=== PATIENT | male | born 1990 | race African-American/Black ===

== ENCOUNTER 2017-04-27 20:08 | Emergency (ER) | payer OTHER ==
[~2017-04-27] VITALS: Ht 175.3 cm; Wt 63.5 kg
[2017-04-27 20:29] VITALS: BP 125/83
== END 2017-04-27 23:56 | disposition left against medical advice (07) ==
LOC: ER 20:08
DX: R50.9 Fever, unspecified (principal); M79.1 Myalgia; Z53.21 Procedure and treatment not carried out due to patient leaving prior to being seen by health care provider

== ENCOUNTER 2017-12-12 21:51 | Observation (INO) | payer OTHER ==
[~2017-12-12] VITALS: Ht 170.2 cm; Wt 62.1 kg
[2017-12-13 00:10] LABS: Basophils # (auto) 0 uL; Basophils % (auto) 0.5 % (0.0-2.0); Eosinophils # (auto) 0.1 uL; Eosinophils % (auto) 1.9 % (0.0-7.0); Hematocrit 44.1 % (41.0-53.0); Hemoglobin 15.3 g/dL (13.5-17.5); Lymphocytes # (auto) 1.5 uL; Lymphocytes % (auto) 33.8 % (10.0-50.0); Mean Corpuscular Hemoglobin 30.7 pg (28.0-32.0); Mean Corpuscular Hgb Conc. 34.7 g/dL (32.0-36.0); Mean Corpuscular Volume 88.5 fL (80.0-100.0); Monocytes # (auto) 0.5 uL; Monocytes % (auto) 12.1 % (0.0-12.0); Neutrophils # (auto) 2.3 uL; Neutrophils % (auto) 51.7 % (37.0-80.0); Nucleated Red Blood Cells % 0.3 %; Platelet Count (auto) 253 10^3/uL (140-450); Red Blood Cells 4.99 10^6/uL (4.5-5.90); Red Cell Distribution Width 13.3 % (11.8-14.3); White Blood Cell 4.5 10^3/uL (4.4-10.8)
[2017-12-13 00:29] LABS: BUN/Creatinine Ratio 5.7; Calcium 9.1 mg/dL (8.5-10.1); Potassium 3.7 mmol/L (3.5-5.1)
[2017-12-13 00:32] LABS: Bilirubin, Total 0.5 mg/dL (0.2-1.0)
[2017-12-13 02:27] LABS: Amylase 64 U/L (25-115); Lipase 228 U/L (73-393)
[2017-12-13 03:42] VITALS: BP 132/63
[2017-12-13] MEDS ORDERED: ALUM & MAG HYDROX-SIMETH LIQ(MAALOX) 30 ML PO ONE (05:15)
[2017-12-13] MEDS ORDERED: LIDOCAINE VISCOUS 2% 15ML UD MT ONE (05:15)
[2017-12-13] MEDS ORDERED: DONNATAL 5ml ORAL Elix (BELLADONNA ALK-PHENOBARB) PO ONE (05:15)
== END 2017-12-13 05:28 | disposition home or self-care (01) | DRG 241 ==
LOC: ER 21:51 → OVERFLOW 21:52 → ER 12-13 05:28
PROVIDERS: ADMIT Emergency Medicine; ATTEND Emergency Medicine
DX: K29.00 Acute gastritis without bleeding (principal); M41.9 Scoliosis, unspecified; J45.909 Unspecified asthma, uncomplicated
CPT/HCPCS: 36415; 74176; 80053; 82150; 83690; 85025; 99285; G0378

== ENCOUNTER 2018-06-13 19:52 | Emergency (ER) | payer SELFPAY ==
[~2018-06-13] VITALS: Ht 172.7 cm; Wt 61.2 kg
[2018-06-13 20:45] LABS: Basophils # (auto) 0 uL; Basophils % (auto) 0.4 % (0.0-2.0); Eosinophils # (auto) 0 uL; Eosinophils % (auto) 0.2 % (0.0-7.0); Hematocrit 46.8 % (41.0-53.0); Hemoglobin 16.4 g/dL (13.5-17.5); Lymphocytes # (auto) 0.7 uL; Lymphocytes % (auto) 15.7 % (10.0-50.0); Mean Corpuscular Hemoglobin 31.3 pg (28.0-32.0); Mean Corpuscular Volume 89.4 fL (80.0-100.0); Monocytes # (auto) 0.3 uL; Monocytes % (auto) 7.1 % (0.0-12.0); Neutrophils # (auto) 3.5 uL; Neutrophils % (auto) 76.6 % (37.0-80.0); Nucleated Red Blood Cells % 0.2 %; Platelet Count (auto) 202 10^3/uL (140-450); Red Blood Cells 5.23 10^6/uL (4.5-5.90); White Blood Cell 4.6 10^3/uL (4.4-10.8)
[2018-06-13 21:14] LABS: Calcium 8.8 mg/dL (8.5-10.1); Potassium 3.9 mmol/L (3.5-5.1)
[2018-06-13 21:16] LABS: Bilirubin, Total 0.7 mg/dL (0.2-1.0); Total Protein 7.8 g/dL (6.4-8.2)
[2018-06-14] MEDS ORDERED: metroNIDAZOLE 500 MG TAB PO ONE (02:30)
[2018-06-14] MEDS ORDERED: MORPHINE SULFATE 4 MG/ML SYR/VIAL IV ONE (02:30)
[2018-06-14] MEDS ORDERED: ONDANSETRON HCL 4 MG/2 ML VIAL IV ONE (02:30)
[2018-06-14] MEDS ORDERED: SODIUM CHLORIDE 0.9% 1,000 ML IV ONE (02:30)
[2018-06-14] MEDS ORDERED: cefTRIAXone 1GM/50ML D5W 50 ML IV ONE (02:30)
[2018-06-14 03:38] VITALS: BP 116/80
== END 2018-06-14 04:04 | disposition home or self-care (01) ==
LOC: ER 19:52
DX: K52.9 Noninfective gastroenteritis and colitis, unspecified (principal); F12.10 Cannabis abuse, uncomplicated; J45.909 Unspecified asthma, uncomplicated
CPT/HCPCS: 36415; 74176; 80053; 82150; 83690; 85025; 96365; 96375; 99284; J0696; J2270; J2405; J7030

== ENCOUNTER 2021-04-28 18:53 | Inpatient (IN) | payer MEDICAID, OTHER ==
[~2021-04-28] VITALS: Ht 172.7 cm; Wt 67.7 kg
[2021-04-28 19:33] LABS: Basophils # (auto) 0 10 ^3/uL (0-0.2); Basophils % (auto) 1.3 % (0.0-2.0); Eosinophils # (auto) 0 10 ^3/uL (0-0.8); Eosinophils % (auto) 0.2 % (0.0-7.0); Hematocrit 49.8 % (41.0-53.0); Hemoglobin 16.8 g/dL (13.5-17.5); Lymphocytes # (auto) 0.8 10 ^3/uL (0.4-5.4); Lymphocytes % (auto) 21.7 % (10.0-50.0); Mean Corpuscular Hgb Conc. 33.8 g/dL (32.0-36.0); Mean Corpuscular Volume 100.6 fL (80.0-100.0); Monocytes # (auto) 0.3 10 ^3/uL (0-1.3); Monocytes % (auto) 7.7 % (0.0-12.0); Neutrophils # (auto) 2.6 10 ^3/uL (1.6-8.6); Neutrophils % (auto) 69.1 % (37.0-80.0); Nucleated Red Blood Cells % 0.1 %; Red Blood Cells 4.94 10^6/uL (4.5-5.90); Red Cell Distribution Width 14.3 % (11.8-14.3); White Blood Cell 3.7 10^3/uL (4.4-10.8)
[2021-04-28 19:49] LABS: INR 1.05 (0.9-1.15)
[2021-04-28 19:50] LABS: Alanine Aminotransferase 173 U/L (16-61); Anion Gap 21 (5-15); Aspartate Aminotransferase 260 U/L (15-37); BUN/Creatinine Ratio 7.9; Blood Urea Nitrogen 6 mg/dL (7-18); Calcium 8.7 mg/dL (8.5-10.1); Carbon Dioxide 17 mmol/L (21-32); Chloride 96 mmol/L (98-107); GFR African American 156 mL/min; GFR Non-African American 129 mL/min; Glucose 97 mg/dL (74-106); Magnesium 1.7 mg/dL (1.6-2.6); Potassium 4.2 mmol/L (3.5-5.1); Sodium 134 mmol/L (136-145)
[2021-04-28 19:52] LABS: Alkaline Phosphatase 171 U/L (45-117); Bilirubin, Total 1.3 mg/dL (0.2-1.0); Total Protein 8.1 g/dL (6.4-8.2)
[2021-04-28 19:58] LABS: Lipase > 1500 U/L (73-393)
[2021-04-28] MEDS ORDERED: ONDANSETRON HCL 4 MG/2 ML VIAL IV ONE (20:15)
[2021-04-28] MEDS ORDERED: HYDROmorphone HCL 2 MG/ML VL IV ONE (20:15)
[2021-04-28] MEDS ORDERED: SODIUM CHLORIDE 0.9% 1,000 ML IV ONE (20:15)
[2021-04-28] MEDS ORDERED: IOHEXOL 300 MG/ML 100ML BOTTLE IJ ONE (20:48)
[2021-04-28 22:05] LABS: INR 1.02 (0.9-1.15)
[2021-04-29] MEDS ORDERED: HYDROcodone-ACET 5/325MG TAB PO PRN ×2 (00:45→11:15)
[2021-04-29 02:35] VITALS: BP 149/117
[2021-04-29] MEDS: SODIUM CHLORIDE 0.9% 1,000 ML IV SCH ×4 (02:35→18:44)
[2021-04-29] MEDS: ONDANSETRON HCL 4 MG/2 ML VIAL IV PRN ×4 (02:54→17:45)
[2021-04-29] MEDS: MORPHINE SULFATE INJECTION 2 MG/ML SYRG IV PRN ×2 (03:08→08:29)
[2021-04-29 05:00] VITALS: BP 159/105
[2021-04-29] MEDS ORDERED: ALBU2TAB4 PO (05:05)
[2021-04-29 06:04] LABS: Urine Bacteria NONE SEEN /hpf (None Seen); Urine Blood Negative /uL (Negative); Urine WBC <1 /hpf (0 - 3)
[2021-04-29 06:50] LABS: Urine Specific Gravity > 1.050 (1.001-1.035)
[2021-04-29] MEDS: DOCUSATE SOD 100 MG CAP PO SCH ×2 (08:29→21:49)
[2021-04-29 11:18] VITALS: BP 146/115
[2021-04-29] MEDS: HYDROmorphone HCL 2 MG/ML VL IV PRN ×4 (11:23→21:50)
[2021-04-29 12:47] LABS: Calcium 8.1 mg/dL (8.5-10.1)
[2021-04-29 12:52] LABS: Albumin 3.5 g/dL (3.4-5.0); BUN/Creatinine Ratio 6.8; Bilirubin, Total 1.3 mg/dL (0.2-1.0); Total Protein 6.9 g/dL (6.4-8.2)
[2021-04-29 20:00] VITALS: BP 154/101
[2021-04-29] MEDS ORDERED: hydrALAZINE HCL 10 MG TAB PO PRN (21:15)
[2021-04-29 22:00] VITALS: BP 154/101
[2021-04-30] MEDS: HYDROmorphone HCL 2 MG/ML VL IV PRN ×4 (01:22→15:36)
[2021-04-30] MEDS: SODIUM CHLORIDE 0.9% 1,000 ML IV SCH (01:23)
[2021-04-30 05:00] VITALS: BP 146/111
[2021-04-30 09:00] VITALS: BP 143/101
[2021-04-30] MEDS: DOCUSATE SOD 100 MG CAP PO SCH ×2 (09:32→21:01)
[2021-04-30] MEDS ORDERED: NITROGLYCERIN 0.4 MG SL TAB SL PRN (11:45)
[2021-04-30] MEDS: PANTOPRAZOLE 40 MG/10 ML VIAL INJ IV SCH (11:47)
[2021-04-30] MEDS: ENOXAPARIN SOD 40 MG/0.4 ML SYRINGE SC SCH (11:47)
[2021-04-30] MEDS: SOD CHL 0.45% 1,000 ML IV SCH ×2 (12:00→22:38)
[2021-04-30 13:00] VITALS: BP 149/113
[2021-04-30 17:00] VITALS: BP 144/103
[2021-04-30 22:00] VITALS: BP 139/116
[2021-04-30] MEDS ORDERED: BISACODYL 10 MG RECT SUPP PR PRN (22:30)
[2021-05-01 05:00] VITALS: BP 137/91
[2021-05-01 06:19] LABS: Albumin 3.1 g/dL (3.4-5.0); BUN/Creatinine Ratio 5.5; Bilirubin, Total 1.2 mg/dL (0.2-1.0); Calcium 8.4 mg/dL (8.5-10.1); Total Protein 6.2 g/dL (6.4-8.2)
[2021-05-01] MEDS ORDERED: DEXTROSE (50%) 50ML SYRG IV ONE (07:00)
[2021-05-01] MEDS ORDERED: DEXTROSE (50%) 50ML SYRG IV PRN (07:30)
[2021-05-01 08:00] VITALS: BP 158/106
[2021-05-01] MEDS: SOD CHL 0.45% 1,000 ML IV SCH ×2 (08:37→17:39)
[2021-05-01 09:00] VITALS: BP 158/106
[2021-05-01] MEDS: HYDROmorphone HCL 2 MG/ML VL IV PRN (09:00)
[2021-05-01] MEDS: DOCUSATE SOD 100 MG CAP PO SCH ×2 (10:00→21:14)
[2021-05-01] MEDS: ENOXAPARIN SOD 40 MG/0.4 ML SYRINGE SC SCH (10:21)
[2021-05-01] MEDS: PANTOPRAZOLE 40 MG/10 ML VIAL INJ IV SCH (10:21)
[2021-05-01 13:00] VITALS: BP 146/84
[2021-05-01 17:00] VITALS: BP 147/100
[2021-05-01 22:00] VITALS: BP 146/109
[2021-05-02] MEDS: SOD CHL 0.45% 1,000 ML IV SCH (03:44)
[2021-05-02 05:00] VITALS: BP 149/112
[2021-05-02 05:38] LABS: Calcium 8.4 mg/dL (8.5-10.1); Potassium 3.2 mmol/L (3.5-5.1)
[2021-05-02 05:51] LABS: BUN/Creatinine Ratio 6.5; Bilirubin, Total 1.2 mg/dL (0.2-1.0); Total Protein 6.6 g/dL (6.4-8.2)
[2021-05-02 08:00] VITALS: BP 157/117
[2021-05-02 09:00] VITALS: BP 157/117
[2021-05-02] MEDS: PANTOPRAZOLE 40 MG/10 ML VIAL INJ IV SCH (09:35)
[2021-05-02] MEDS: ENOXAPARIN SOD 40 MG/0.4 ML SYRINGE SC SCH (09:36)
[2021-05-02] MEDS: DOCUSATE SOD 100 MG CAP PO SCH (09:36)
[2021-05-02] MEDS ORDERED: POTASSIUM CHL 20 Meq TABLET PO ONE (11:45)
[2021-05-02 13:00] VITALS: BP 155/109
== END 2021-05-02 14:00 | disposition home or self-care (01) | DRG 282 ==
LOC: ER 18:53 → OVERFLOW 18:54 → WEST WING 04-29 03:00 → TELE-WESTW 04-29 21:11
PROVIDERS: ADMIT Nurse Practitioner Family; ATTEND Nurse Practitioner Family
DX: K85.20 Alcohol induced acute pancreatitis without necrosis or infection (principal); E87.2 Acidosis; K70.9 Alcoholic liver disease, unspecified; E86.0 Dehydration; E87.1 Hypo-osmolality and hyponatremia; J45.909 Unspecified asthma, uncomplicated; R79.89 Other specified abnormal findings of blood chemistry; R00.0 Tachycardia, unspecified; Z71.41 Alcohol abuse counseling and surveillance of alcoholic; Z20.822 Contact with and (suspected) exposure to COVID-19
CPT/HCPCS: 36415; 74177; 80053; 81001; 82150; 82962; 83605; 83690; 83735; 85025; 85610; 87426; 96361; 96374; 96375; C9113; G0378; J2405

== ENCOUNTER 2022-03-13 04:01 | Inpatient (IN) | payer MEDICAID ==
[~2022-03-13] VITALS: Ht 172.7 cm; Wt 62.6 kg
[~2022-03-13 04:01] MED LIST: ALBU2TAB4 PO
[2022-03-13 04:59] LABS: Basophils # (auto) 0 10 ^3/uL (0-0.2); Basophils % (auto) 0.2 % (0.0-2.0); Eosinophils # (auto) 0.1 10 ^3/uL (0-0.8); Eosinophils % (auto) 1.3 % (0.0-7.0); Hematocrit 42.4 % (41.0-53.0); Hemoglobin 14.8 g/dL (13.5-17.5); Lymphocytes # (auto) 0.9 10 ^3/uL (0.4-5.4); Lymphocytes % (auto) 13.1 % (10.0-50.0); Mean Corpuscular Hemoglobin 33.5 pg (28.0-32.0); Mean Corpuscular Volume 95.9 fL (80.0-100.0); Monocytes # (auto) 0.4 10 ^3/uL (0-1.3); Monocytes % (auto) 6.3 % (0.0-12.0); Neutrophils # (auto) 5.2 10 ^3/uL (1.6-8.6); Neutrophils % (auto) 79.1 % (37.0-80.0); Red Blood Cells 4.42 10^6/uL (4.5-5.90); Red Cell Distribution Width 13.2 % (11.8-14.3); White Blood Cell 6.5 10^3/uL (4.4-10.8)
[2022-03-13 05:12] LABS: Albumin 4.1 g/dL (3.4-5.0); Calcium 9.1 mg/dL (8.5-10.1); Potassium 3.7 mmol/L (3.5-5.1)
[2022-03-13 05:15] LABS: Bilirubin, Total 1.2 mg/dL (0.2-1.0); Total Protein 7.3 g/dL (6.4-8.2)
[2022-03-13 05:22] LABS: BUN/Creatinine Ratio 9.1
[2022-03-13] MEDS ORDERED: SODIUM CHLORIDE 0.9% 1,000 ML IVB ONE (07:30)
[2022-03-13] MEDS ORDERED: HYDROmorphone HCL 2 MG/ML VL/or syr IV ONE ×2 (07:30→12:45)
[2022-03-13] MEDS ORDERED: METOCLOPRAMIDE HCL 5MG/ml INJ 2ml VIAL IV ONE (07:30)
[2022-03-13 07:56] LABS: Urine Bacteria NONE SEEN /hpf (None Seen); Urine Mucus FEW (None Seen); Urine WBC 1 /hpf (0 - 3)
[2022-03-13] MEDS ORDERED: IOHEXOL 300 MG/ML 100ML BOTTLE IJ ONE (08:00)
[2022-03-13 08:13] LABS: Urine Blood Normal /uL (Negative)
[2022-03-13 10:22] LABS: Alcohol, Urine < 3.0 mg/dL (0-10); Amphetamine Screen, Urine NEGATIVE (NEGATIVE); Barbiturate Scree,Urine NEGATIVE (NEGATIVE); Benzodiazephine Screen, Urine NEGATIVE (NEGATIVE); Cannabinoid Screen, Urine NEGATIVE (NEGATIVE); Cocaine Screen, Urine NEGATIVE (NEGATIVE); Opiate Scree,Urine NEGATIVE (NEGATIVE); Phencyclidine Screen, Urine NEGATIVE (NEGATIVE)
[2022-03-13] MEDS ORDERED: SODIUM CHLORIDE 0.9% 1,000 ML IV ONE (12:45)
[2022-03-13] MEDS ORDERED: PROCHLORPERAZINE EDISYLATE 5 MG/ML 2ML VIAL IV ONE (12:45)
[2022-03-13] MEDS ORDERED: ONDANSETRON HCL 4 MG/2 ML VIAL IV PRN (12:45)
[2022-03-13] MEDS ORDERED: KETOROLAC TROMETH 30 MG/ML 1ML VIAL IV ONE (13:00)
[2022-03-13] MEDS ORDERED: chlordiazePOXIDE HCL 25 MG CAP PO PRN (13:15)
[2022-03-13] MEDS ORDERED: THIAMINE HCL 100 MG TAB PO ONE (13:30)
[2022-03-13] MEDS ORDERED: FOLIC ACID 1 MG TAB PO ONE (13:30)
[2022-03-13] MEDS: SODIUM CHLORIDE 0.9% 1,000 ML IV SCH ×2 (14:00→22:07)
[2022-03-13] MEDS: METOCLOPRAMIDE HCL 5MG/ml INJ 2ml VIAL IV SCH ×2 (16:30→22:04)
[2022-03-13] MEDS: KETOROLAC TROMETH 30 MG/ML 1ML VIAL IV PRN (17:55)
[2022-03-13 20:00] VITALS: BP 118/78
[2022-03-13 22:00] VITALS: BP 118/78
[2022-03-13] MEDS: HYDROcodone-ACET 5/325MG TAB PO PRN (22:17)
[2022-03-14] MEDS: KETOROLAC TROMETH 30 MG/ML 1ML VIAL IV PRN ×2 (02:21→20:23)
[2022-03-14] MEDS: SODIUM CHLORIDE 0.9% 1,000 ML IV SCH ×4 (02:25→23:56)
[2022-03-14] MEDS: METOCLOPRAMIDE HCL 5MG/ml INJ 2ml VIAL IV SCH (06:03)
[2022-03-14] MEDS: HYDROmorphone HCL 2 MG/ML VL/or syr IV PRN ×4 (06:15→23:55)
[2022-03-14 06:34] LABS: Basophils # (auto) 0 10 ^3/uL (0-0.2); Basophils % (auto) 0.5 % (0.0-2.0); Eosinophils # (auto) 0.1 10 ^3/uL (0-0.8); Eosinophils % (auto) 2.5 % (0.0-7.0); Hemoglobin 13.4 g/dL (13.5-17.5); Lymphocytes # (auto) 0.8 10 ^3/uL (0.4-5.4); Lymphocytes % (auto) 21.7 % (10.0-50.0); Mean Corpuscular Hemoglobin 33.7 pg (28.0-32.0); Mean Corpuscular Hgb Conc. 35.4 g/dL (32.0-36.0); Mean Corpuscular Volume 95.3 fL (80.0-100.0); Monocytes # (auto) 0.3 10 ^3/uL (0-1.3); Monocytes % (auto) 7.6 % (0.0-12.0); Neutrophils # (auto) 2.5 10 ^3/uL (1.6-8.6); Neutrophils % (auto) 67.7 % (37.0-80.0); Red Blood Cells 3.98 10^6/uL (4.5-5.90); Red Cell Distribution Width 13.3 % (11.8-14.3); White Blood Cell 3.7 10^3/uL (4.4-10.8)
[2022-03-14] MEDS ORDERED: LACTULOSE 20Gm/30ML SOLN PO ONE (06:45)
[2022-03-14 06:50] LABS: Potassium 3.7 mmol/L (3.5-5.1)
[2022-03-14 07:03] LABS: Albumin 3.1 g/dL (3.4-5.0); BUN/Creatinine Ratio 7.9; Bilirubin, Total 0.8 mg/dL (0.2-1.0); Calcium 8.1 mg/dL (8.5-10.1); Total Protein 5.9 g/dL (6.4-8.2)
[2022-03-14 09:00] VITALS: BP 144/91
[2022-03-14] MEDS ORDERED: ENOXAPARIN SOD 40 MG/0.4 ML SYRINGE SC SCH (10:00)
[2022-03-14] MEDS: FOLIC ACID 1 MG TAB PO SCH (10:21)
[2022-03-14] MEDS: THIAMINE HCL 100 MG TAB PO SCH (10:21)
[2022-03-14] MEDS ORDERED: POLYETHYLENE GLYCOL 17 GM PWDR PO ONE (12:15)
[2022-03-14] MEDS ORDERED: PANTOPRAZOLE 40 MG/10 ML VIAL INJ IV ONE (12:15)
[2022-03-14] MEDS ORDERED: POLYETHYLENE GLYCOL 17 GM PWDR PO PRN (12:15)
[2022-03-14] MEDS ORDERED: DOCUSATE SOD 100 MG CAP PO ONE (12:15)
[2022-03-14 13:00] VITALS: BP 122/82
[2022-03-14] MEDS: NICOTINE 21MG/24 HR TOPICAL PATCH TD ONE ×2 (13:41→13:57)
[2022-03-14 17:00] VITALS: BP 142/86
[2022-03-14 22:00] VITALS: BP 152/108
[2022-03-15] MEDS: HYDROmorphone HCL 2 MG/ML VL/or syr IV PRN ×5 (03:47→21:50)
[2022-03-15] MEDS: SODIUM CHLORIDE 0.9% 1,000 ML IV SCH ×4 (04:43→20:14)
[2022-03-15 05:00] VITALS: BP 139/97
[2022-03-15 06:16] LABS: Basophils # (auto) 0 10 ^3/uL (0-0.2); Eosinophils # (auto) 0.1 10 ^3/uL (0-0.8); Eosinophils % (auto) 5.4 % (0.0-7.0); Hematocrit 36.5 % (41.0-53.0); Lymphocytes # (auto) 0.8 10 ^3/uL (0.4-5.4); Lymphocytes % (auto) 32.2 % (10.0-50.0); Mean Corpuscular Hemoglobin 33.6 pg (28.0-32.0); Mean Corpuscular Hgb Conc. 35.6 g/dL (32.0-36.0); Mean Corpuscular Volume 94.3 fL (80.0-100.0); Monocytes # (auto) 0.3 10 ^3/uL (0-1.3); Monocytes % (auto) 11.8 % (0.0-12.0); Neutrophils # (auto) 1.2 10 ^3/uL (1.6-8.6); Neutrophils % (auto) 49.6 % (37.0-80.0); Nucleated Red Blood Cells % 0.1 %; Red Blood Cells 3.87 10^6/uL (4.5-5.90); Red Cell Distribution Width 13.3 % (11.8-14.3); White Blood Cell 2.4 10^3/uL (4.4-10.8)
[2022-03-15 06:28] LABS: Potassium 3.6 mmol/L (3.5-5.1)
[2022-03-15 06:40] LABS: Albumin 3.3 g/dL (3.4-5.0); Bilirubin, Total 0.6 mg/dL (0.2-1.0); Calcium 8.6 mg/dL (8.5-10.1); Total Protein 6.1 g/dL (6.4-8.2)
[2022-03-15 08:00] VITALS: BP 160/117
[2022-03-15 09:00] VITALS: BP 160/117
[2022-03-15] MEDS: NICOTINE 21MG/24 HR TOPICAL PATCH TD SCH (10:00)
[2022-03-15] MEDS: FOLIC ACID 1 MG TAB PO SCH (10:26)
[2022-03-15] MEDS: KETOROLAC TROMETH 30 MG/ML 1ML VIAL IV PRN ×2 (10:27→19:56)
[2022-03-15] MEDS: THIAMINE HCL 100 MG TAB PO SCH (10:28)
[2022-03-15] MEDS: PANTOPRAZOLE 40 MG/10 ML VIAL INJ IV SCH (10:29)
[2022-03-15 13:00] VITALS: BP 125/84
[2022-03-15] MEDS ORDERED: cloNIDine HCL 0.1 MG TAB PO PRN (13:00)
[2022-03-15 16:49] VITALS: BP 141/89
[2022-03-15 22:00] VITALS: BP 141/89
[2022-03-16] MEDS: HYDROcodone-ACET 5/325MG TAB PO PRN (00:56)
[2022-03-16] MEDS: HYDROmorphone HCL 2 MG/ML VL/or syr IV PRN ×5 (02:16→21:40)
[2022-03-16 05:00] VITALS: BP 132/85
[2022-03-16] MEDS: ACETAMINOPHEN 325 MG TAB PO PRN ×2 (06:00→12:24)
[2022-03-16] MEDS: SODIUM CHLORIDE 0.9% 1,000 ML IV SCH ×3 (06:01→21:53)
[2022-03-16 08:00] VITALS: BP 116/86
[2022-03-16] MEDS: PANTOPRAZOLE 40 MG/10 ML VIAL INJ IV SCH (08:53)
[2022-03-16] MEDS: THIAMINE HCL 100 MG TAB PO SCH (08:53)
[2022-03-16] MEDS: FOLIC ACID 1 MG TAB PO SCH (08:53)
[2022-03-16] MEDS: NICOTINE 21MG/24 HR TOPICAL PATCH TD SCH (08:59)
[2022-03-16 09:00] VITALS: BP 116/86
[2022-03-16 13:00] VITALS: BP 140/92
[2022-03-16] MEDS: KETOROLAC TROMETH 30 MG/ML 1ML VIAL IV PRN (13:24)
[2022-03-16] MEDS: cefTRIAXone 1GM/50ML D5W 50 ML IV SCH (14:00)
[2022-03-16] MEDS: metroNIDAZOLE 500MG/100ML 100 ML IV SCH ×2 (14:47→21:40)
[2022-03-16 16:19] LABS: Hemoglobin 13.5 g/dL (13.5-17.5); Red Blood Cells 4.08 10^6/uL (4.5-5.90)
[2022-03-16 16:21] LABS: Hematocrit 38.8 % (41.0-53.0); Mean Corpuscular Hemoglobin 33.1 pg (28.0-32.0); Mean Corpuscular Hgb Conc. 34.8 g/dL (32.0-36.0); Mean Corpuscular Volume 95.2 fL (80.0-100.0); Red Cell Distribution Width 13.3 % (11.8-14.3)
[2022-03-16 16:35] LABS: White Blood Cell 1.7 10^3/uL (4.4-10.8)
[2022-03-16 16:37] LABS: Blast Cells 0; Eosinophils % (manual) 0 (0-7); Metamyelocytes % 0; Myelocytes % 0; Promyelocytes % 0; Reactive Lymphocytes 0
[2022-03-16 16:40] LABS: Albumin 3.5 g/dL (3.4-5.0); Calcium 8.5 mg/dL (8.5-10.1); Potassium 4.1 mmol/L (3.5-5.1)
[2022-03-16 16:50] LABS: BUN/Creatinine Ratio 2.4; Bilirubin, Total 0.3 mg/dL (0.2-1.0); Total Protein 6.7 g/dL (6.4-8.2)
[2022-03-16 17:00] VITALS: BP 128/97
[2022-03-16 17:16] LABS: Band Neutrophils % (manual) 11; Basophils % (manual) 3 (0.0-2.0); Lymphocytes % (manual) 22 (10.0-50.0); Monocytes % (manual) 21 (0-12)
[2022-03-16 22:00] VITALS: BP 138/99
[2022-03-17] VITALS (7 sets, daily range): BP systolic 104–125; BP diastolic 73–88
[2022-03-17] MEDS: HYDROmorphone HCL 2 MG/ML VL/or syr IV PRN ×3 (01:38→13:18)
[2022-03-17 05:00] LABS: Red Cell Distribution Width 12.9 % (11.8-14.3)
[2022-03-17 05:01] LABS: Hematocrit 38.2 % (41.0-53.0); Hemoglobin 13.4 g/dL (13.5-17.5); Mean Corpuscular Hemoglobin 33.7 pg (28.0-32.0); Mean Corpuscular Hgb Conc. 35.2 g/dL (32.0-36.0); Mean Corpuscular Volume 95.9 fL (80.0-100.0); Red Blood Cells 3.98 10^6/uL (4.5-5.90)
[2022-03-17 05:04] LABS: White Blood Cell 1.3 10^3/uL (4.4-10.8)
[2022-03-17 05:06] LABS: Basophils % (manual) 0 (0.0-2.0); Blast Cells 0; Eosinophils % (manual) 0 (0-7); Metamyelocytes % 0; Myelocytes % 0; Promyelocytes % 0; Reactive Lymphocytes 0
[2022-03-17 05:14] LABS: Calcium 7.9 mg/dL (8.5-10.1)
[2022-03-17 05:17] LABS: BUN/Creatinine Ratio 3.2; Bilirubin, Total 0.3 mg/dL (0.2-1.0); Total Protein 6.2 g/dL (6.4-8.2)
[2022-03-17] MEDS: metroNIDAZOLE 500MG/100ML 100 ML IV SCH ×3 (05:23→21:42)
[2022-03-17 05:28] LABS: Band Neutrophils % (manual) 5; Lymphocytes % (manual) 50 (10.0-50.0); Monocytes % (manual) 20 (0-12)
[2022-03-17] MEDS: SODIUM CHLORIDE 0.9% 1,000 ML IV SCH ×4 (05:38→21:46)
[2022-03-17] MEDS: cefTRIAXone 1GM/50ML D5W 50 ML IV SCH (09:58)
[2022-03-17] MEDS: THIAMINE HCL 100 MG TAB PO SCH (09:59)
[2022-03-17] MEDS: PANTOPRAZOLE 40 MG/10 ML VIAL INJ IV SCH (09:59)
[2022-03-17] MEDS: FOLIC ACID 1 MG TAB PO SCH (09:59)
[2022-03-17] MEDS: NICOTINE 21MG/24 HR TOPICAL PATCH TD SCH (09:59)
[2022-03-18] VITALS (7 sets, daily range): BP systolic 111–135; BP diastolic 62–95
[2022-03-18] MEDS: metroNIDAZOLE 500MG/100ML 100 ML IV SCH ×3 (05:33→21:59)
[2022-03-18] MEDS: SODIUM CHLORIDE 0.9% 1,000 ML IV SCH ×3 (06:42→19:50)
[2022-03-18] MEDS: cefTRIAXone 1GM/50ML D5W 50 ML IV SCH (09:26)
[2022-03-18] MEDS: PANTOPRAZOLE 40 MG/10 ML VIAL INJ IV SCH (09:27)
[2022-03-18] MEDS: FOLIC ACID 1 MG TAB PO SCH (09:27)
[2022-03-18] MEDS: THIAMINE HCL 100 MG TAB PO SCH (09:27)
[2022-03-18] MEDS: NICOTINE 21MG/24 HR TOPICAL PATCH TD SCH (09:27)
[2022-03-18] MEDS ORDERED: HYDROmorphone HCL 2 MG/ML VL/or syr IV PRN (11:15)
[2022-03-18] MEDS ORDERED: ACETAMINOPHEN 325 MG TAB PO PRN (11:15)
[2022-03-18 13:39] LABS: Thyroid Stimulating Hormone 2.56 uIU/mL (0.358-3.74)
[2022-03-19 05:00] VITALS: BP 115/77
[2022-03-19] MEDS: metroNIDAZOLE 500MG/100ML 100 ML IV SCH (06:03)
[2022-03-19 07:58] LABS: Hematocrit 37.6 % (41.0-53.0); Hemoglobin 12.8 g/dL (13.5-17.5); Mean Corpuscular Hemoglobin 32.7 pg (28.0-32.0); Mean Corpuscular Hgb Conc. 34.1 g/dL (32.0-36.0); Mean Corpuscular Volume 95.8 fL (80.0-100.0); Red Blood Cells 3.92 10^6/uL (4.5-5.90); Red Cell Distribution Width 13.4 % (11.8-14.3)
[2022-03-19 08:01] LABS: Basophils % (manual) 0 (0.0-2.0); Blast Cells 0; Metamyelocytes % 0; Myelocytes % 0; Promyelocytes % 0
[2022-03-19 08:17] LABS: Albumin 3.2 g/dL (3.4-5.0); BUN/Creatinine Ratio 5.4; Calcium 8.5 mg/dL (8.5-10.1); Potassium 4.1 mmol/L (3.5-5.1)
[2022-03-19 08:20] LABS: Bilirubin, Total 0.2 mg/dL (0.2-1.0); Total Protein 5.9 g/dL (6.4-8.2)
[2022-03-19 08:57] VITALS: BP 120/83
[2022-03-19] MEDS: SODIUM CHLORIDE 0.9% 1,000 ML IV SCH (09:05)
[2022-03-19] MEDS: cefTRIAXone 1GM/50ML D5W 50 ML IV SCH (09:05)
[2022-03-19] MEDS: FOLIC ACID 1 MG TAB PO SCH (09:06)
[2022-03-19] MEDS: NICOTINE 21MG/24 HR TOPICAL PATCH TD SCH ×2 (09:06→10:00)
[2022-03-19] MEDS: PANTOPRAZOLE 40 MG/10 ML VIAL INJ IV SCH (09:06)
[2022-03-19] MEDS: THIAMINE HCL 100 MG TAB PO SCH (09:07)
[2022-03-19 10:46] LABS: Band Neutrophils % (manual) 5; Eosinophils % (manual) 1 (0-7); Lymphocytes % (manual) 65 (10.0-50.0); Monocytes % (manual) 9 (0-12); Reactive Lymphocytes 7
[2022-03-19] MEDS ORDERED: METR500T PO (11:41)
[2022-03-19] MEDS ORDERED: PANT40TA2 PO (11:41)
[2022-03-19] MEDS ORDERED: LEVO500T31 PO (11:41)
[2022-03-19] MEDS ORDERED: MULT-351 PO (11:41)
[2022-03-19 12:51] VITALS: BP 128/97
[2022-03-19 12:59] VITALS: BP 125/91
[2022-03-21 15:43] LABS: Hepatitis A Ab IgM Negative
[2022-03-21 15:44] LABS: Hepatitis B Core IgM Negative; Hepatitis C Antibody Negative (Negative)
== END 2022-03-19 16:10 | disposition home or self-care (01) | DRG 282 ==
LOC: ER 04:01 → OVERFLOW 12:45 → WEST WING 16:08
PROVIDERS: ADMIT Nurse Practitioner Family; ATTEND Internal Medicine
DX: K85.20 Alcohol induced acute pancreatitis without necrosis or infection (principal); R18.8 Other ascites; K70.9 Alcoholic liver disease, unspecified; D72.819 Decreased white blood cell count, unspecified; J45.909 Unspecified asthma, uncomplicated; R79.89 Other specified abnormal findings of blood chemistry; K76.0 Fatty (change of) liver, not elsewhere classified; F10.10 Alcohol abuse, uncomplicated; Z20.822 Contact with and (suspected) exposure to COVID-19; Z72.0 Tobacco use; Z87.19 Personal history of other diseases of the digestive system
CPT/HCPCS: 36415; 71046; 74177; 76705; 78226; 80053; 80074; 80307; 81001; 82607; 83615; 83690; 83735; 84436; 84443; 85007; 85025; 85027; 86038; 86200; 86703; 87040; 87086; 87426; 96361; 96374; 96375; 96376; C9113; G0378; J0696; J1885; J3490

== ENCOUNTER 2022-12-18 21:27 | Inpatient (IN) | payer MEDICAID ==
[~2022-12-18] VITALS: Ht 170.2 cm; Wt 63.8 kg
[~2022-12-18 21:27] MED LIST changes: +ALBU2TAB11 PO; -ALBU2TAB4 PO; +LEVO500T31 PO; +METR500T PO; +MULT-351 PO; +PANT40TA2 PO
[2022-12-18 22:18] LABS: Basophils # (auto) 0 10 ^3/uL (0-0.2); Basophils % (auto) 0.3 % (0.0-2.0); Eosinophils # (auto) 0.1 10 ^3/uL (0-0.8); Eosinophils % (auto) 1.4 % (0.0-7.0); Hematocrit 50.2 % (41.0-53.0); Hemoglobin 16.9 g/dL (13.5-17.5); Lymphocytes # (auto) 0.8 10 ^3/uL (0.4-5.4); Lymphocytes % (auto) 20.1 % (10.0-50.0); Mean Corpuscular Hemoglobin 30.2 pg (28.0-32.0); Mean Corpuscular Hgb Conc. 33.6 g/dL (32.0-36.0); Mean Corpuscular Volume 89.8 fL (80.0-100.0); Monocytes # (auto) 0.4 10 ^3/uL (0-1.3); Monocytes % (auto) 10.5 % (0.0-12.0); Neutrophils # (auto) 2.8 10 ^3/uL (1.6-8.6); Neutrophils % (auto) 67.7 % (37.0-80.0); Nucleated Red Blood Cells % 0.1 %; Red Blood Cells 5.59 10^6/uL (4.5-5.90); Red Cell Distribution Width 16.6 % (11.8-14.3); White Blood Cell 4.2 10^3/uL (4.4-10.8)
[2022-12-18 22:24] LABS: Albumin 3.5 g/dL (3.4-5.0); Calcium 8.8 mg/dL (8.5-10.1); Potassium 3.7 mmol/L (3.5-5.1)
[2022-12-18 22:33] LABS: BUN/Creatinine Ratio 4.1 (10.0-20.0); Total Protein 7.6 g/dL (6.4-8.2)
[2022-12-19] MEDS ORDERED: ONDANSETRON HCL 4 MG/2 ML VIAL IM ONE (01:45)
[2022-12-19] MEDS ORDERED: HYDROmorphone HCL 2 MG/ML VL/or syr IM ONE (01:45)
[2022-12-19 02:05] LABS: Urine Bacteria NONE SEEN /hpf (None Seen); Urine Blood Negative /uL (Negative); Urine Clarity Clear (Clear); Urine Color Colorless (Yellow); Urine Protein, UAD Negative (Negative); Urine Specific Gravity 1.006 (1.001-1.035); Urine Urobilinogen Normal (Negative); Urine WBC <1 /hpf (0 - 3); Urine pH 8.5 (5.0-8.0)
[2022-12-19] MEDS ORDERED: SODIUM CHLORIDE 0.9% 1,000 ML IV ONE (05:15)
[2022-12-19] MEDS ORDERED: ONDANSETRON HCL 4 MG/2 ML VIAL IV ONE (05:30)
[2022-12-19] MEDS ORDERED: HYDROmorphone HCL 2 MG/ML VL/or syr IV ONE ×3 (05:30→15:00)
[2022-12-19] MEDS ORDERED: ONDANSETRON HCL 4 MG/2 ML VIAL IV PRN (10:30)
[2022-12-19] MEDS ORDERED: DOCUSATE SOD 100 MG CAP PO PRN (10:30)
[2022-12-19] MEDS: HYDROmorphone HCL 2 MG/ML VL/or syr IV PRN ×2 (12:03→20:17)
[2022-12-19] MEDS: SODIUM CHLORIDE 0.9% 1,000 ML IV SCH ×2 (12:03→18:59)
[2022-12-19 13:40] VITALS: PULSE 75; RESP 18; O2SAT 98
[2022-12-19 18:30] VITALS: RESP 20
[2022-12-19 18:54] VITALS: PULSE 65; RESP 18; RESP 20
[2022-12-19 20:00] VITALS: BP 151/110; PULSE 65; RESP 18; TEMP 98.6; O2SAT 96
[2022-12-19 21:54] VITALS: BP 152/98; PULSE 71; RESP 14; TEMP 98.2; O2SAT 98
[2022-12-20] MEDS: HYDROmorphone HCL 2 MG/ML VL/or syr IV PRN ×5 (00:46→21:52)
[2022-12-20] MEDS: HYDROcodone-ACET 5/325MG TAB PO PRN ×2 (04:18→13:22)
[2022-12-20] MEDS: SODIUM CHLORIDE 0.9% 1,000 ML IV SCH ×3 (04:22→19:50)
[2022-12-20 04:54] VITALS: BP 176/118; PULSE 69; RESP 14; TEMP 98.2; O2SAT 100
[2022-12-20 06:30] LABS: Basophils # (auto) 0 10 ^3/uL (0-0.2); Basophils % (auto) 0.7 % (0.0-2.0); Eosinophils # (auto) 0.1 10 ^3/uL (0-0.8); Eosinophils % (auto) 2.4 % (0.0-7.0); Hematocrit 45.5 % (41.0-53.0); Hemoglobin 15.2 g/dL (13.5-17.5); Lymphocytes % (auto) 29.3 % (10.0-50.0); Mean Corpuscular Hemoglobin 30.3 pg (28.0-32.0); Mean Corpuscular Hgb Conc. 33.4 g/dL (32.0-36.0); Mean Corpuscular Volume 90.8 fL (80.0-100.0); Monocytes # (auto) 0.4 10 ^3/uL (0-1.3); Monocytes % (auto) 12.4 % (0.0-12.0); Neutrophils # (auto) 1.9 10 ^3/uL (1.6-8.6); Neutrophils % (auto) 55.2 % (37.0-80.0); Nucleated Red Blood Cells % 0.4 %; Red Blood Cells 5.01 10^6/uL (4.5-5.90); Red Cell Distribution Width 16.5 % (11.8-14.3); White Blood Cell 3.4 10^3/uL (4.4-10.8)
[2022-12-20 06:39] LABS: Potassium 3.4 mmol/L (3.5-5.1)
[2022-12-20 06:52] LABS: Albumin 3.1 g/dL (3.4-5.0); BUN/Creatinine Ratio 4.6 (10.0-20.0); Bilirubin, Total 0.9 mg/dL (0.2-1.0); Total Protein 6.9 g/dL (6.4-8.2)
[2022-12-20 08:00] VITALS: BP_SYST 145; BP_SYST 156; BP_DIAS 87; BP_DIAS 99; PULSE 56; PULSE 58; PULSE 66; RESP 18; RESP 22; TEMP 97.6; TEMP 98.1; O2SAT 92; O2SAT 97
[2022-12-20] MEDS: PANTOPRAZOLE 40 MG/10 ML VIAL INJ IV SCH (09:08)
[2022-12-20 10:26] LABS: Cholesterol 149 mg/dL (< 200); HDL Cholesterol 68 mg/dL (40-59); LDL Cholesterol 65 mg/dL (< 100); Triglycerides 70 mg/dL (< 150)
[2022-12-20 12:00] VITALS: BP 151/109; PULSE 60; RESP 16; TEMP 98.1; O2SAT 98
[2022-12-20] MEDS ORDERED: LORazepam 2MG/ML-1ML VIAL IV PRN (15:30)
[2022-12-20 16:00] VITALS: BP 161/115; PULSE 61; RESP 16; TEMP 98.4; O2SAT 97
[2022-12-20 22:00] VITALS: BP 154/123; PULSE 69; RESP 17; TEMP 98.6; O2SAT 99
[2022-12-20] MEDS: hydrALAZINE HCL 20 MG/ML VL IV PRN (22:58)
[2022-12-21] MEDS: HYDROcodone-ACET 5/325MG TAB PO PRN ×2 (00:16→06:25)
[2022-12-21] MEDS: HYDROmorphone HCL 2 MG/ML VL/or syr IV PRN ×5 (03:29→21:55)
[2022-12-21] MEDS: SODIUM CHLORIDE 0.9% 1,000 ML IV SCH ×3 (04:10→20:50)
[2022-12-21 05:00] VITALS: BP 161/114; PULSE 66; RESP 17; TEMP 98; O2SAT 99
[2022-12-21 05:01] LABS: Basophils # (auto) 0 10 ^3/uL (0-0.2); Basophils % (auto) 0.4 % (0.0-2.0); Eosinophils # (auto) 0.1 10 ^3/uL (0-0.8); Eosinophils % (auto) 2.1 % (0.0-7.0); Hematocrit 47.8 % (41.0-53.0); Lymphocytes % (auto) 27.9 % (10.0-50.0); Mean Corpuscular Hemoglobin 30.2 pg (28.0-32.0); Mean Corpuscular Hgb Conc. 33.4 g/dL (32.0-36.0); Mean Corpuscular Volume 90.3 fL (80.0-100.0); Monocytes # (auto) 0.4 10 ^3/uL (0-1.3); Monocytes % (auto) 12.3 % (0.0-12.0); Neutrophils % (auto) 57.3 % (37.0-80.0); Nucleated Red Blood Cells % 0.9 %; Red Blood Cells 5.29 10^6/uL (4.5-5.90); Red Cell Distribution Width 16.9 % (11.8-14.3); White Blood Cell 3.5 10^3/uL (4.4-10.8)
[2022-12-21 05:20] LABS: BUN/Creatinine Ratio 5.3 (10.0-20.0); Calcium 8.3 mg/dL (8.5-10.1)
[2022-12-21 08:00] VITALS: BP 152/108; PULSE 71; RESP 16; TEMP 98.1; O2SAT 98
[2022-12-21] MEDS: PANTOPRAZOLE 40 MG/10 ML VIAL INJ IV SCH (08:31)
[2022-12-21] MEDS: hydrALAZINE HCL 20 MG/ML VL IV PRN ×3 (08:31→22:42)
[2022-12-21 12:00] VITALS: BP 158/111; PULSE 71; RESP 16; TEMP 98.8; O2SAT 100
[2022-12-21] MEDS: FOLIC ACID 1 MG, MULTIPLE VITAMIN 10 ML, MAGNESIUM SULF SDV 50% 8 MEQ, THIAMINE INJ 100... INJ SCH ×5 (12:54)
[2022-12-21 16:00] VITALS: BP 155/113; PULSE 76; RESP 18; TEMP 98.6; O2SAT 100
[2022-12-21 22:48] VITALS: BP 157/115; PULSE 87; RESP 18; TEMP 98; O2SAT 98
[2022-12-22] MEDS: HYDROmorphone HCL 2 MG/ML VL/or syr IV PRN ×5 (03:37→21:27)
[2022-12-22 04:48] VITALS: BP 147/100; PULSE 89; RESP 18; TEMP 98.7; O2SAT 99
[2022-12-22] MEDS: SODIUM CHLORIDE 0.9% 1,000 ML IV SCH ×3 (05:32→21:48)
[2022-12-22 07:09] LABS: Basophils # (auto) 0 10 ^3/uL (0-0.2); Basophils % (auto) 0.9 % (0.0-2.0); Eosinophils # (auto) 0.1 10 ^3/uL (0-0.8); Eosinophils % (auto) 2.5 % (0.0-7.0); Hematocrit 46.9 % (41.0-53.0); Hemoglobin 15.9 g/dL (13.5-17.5); Lymphocytes % (auto) 29.1 % (10.0-50.0); Mean Corpuscular Hemoglobin 30.3 pg (28.0-32.0); Mean Corpuscular Volume 89.2 fL (80.0-100.0); Monocytes # (auto) 0.5 10 ^3/uL (0-1.3); Monocytes % (auto) 14.8 % (0.0-12.0); Neutrophils # (auto) 1.8 10 ^3/uL (1.6-8.6); Neutrophils % (auto) 52.7 % (37.0-80.0); Nucleated Red Blood Cells % 0.2 %; Red Blood Cells 5.26 10^6/uL (4.5-5.90); Red Cell Distribution Width 16.8 % (11.8-14.3); White Blood Cell 3.3 10^3/uL (4.4-10.8)
[2022-12-22 07:26] LABS: BUN/Creatinine Ratio 3.5 (10.0-20.0); Calcium 8.9 mg/dL (8.5-10.1); Potassium 3.5 mmol/L (3.5-5.1)
[2022-12-22 08:00] VITALS: BP 150/97; PULSE 111; RESP 18; TEMP 98.1; O2SAT 98
[2022-12-22] MEDS: PANTOPRAZOLE 40 MG/10 ML VIAL INJ IV SCH (08:10)
[2022-12-22 12:00] VITALS: BP 146/99; PULSE 87; RESP 18; TEMP 98.3; O2SAT 98
[2022-12-22] MEDS: FOLIC ACID 1 MG, MULTIPLE VITAMIN 10 ML, MAGNESIUM SULF SDV 50% 8 MEQ, THIAMINE INJ 100... INJ SCH ×5 (12:57)
[2022-12-22 16:00] VITALS: BP 138/97; PULSE 80; RESP 16; TEMP 98.8; O2SAT 98
[2022-12-22] MEDS: HYDROcodone-ACET 5/325MG TAB PO PRN (18:35)
[2022-12-22 22:00] VITALS: BP 133/98; PULSE 83; RESP 18; TEMP 98.4; O2SAT 99
[2022-12-23] MEDS: HYDROcodone-ACET 5/325MG TAB PO PRN (04:09)
[2022-12-23 05:00] VITALS: BP 136/85; PULSE 100; RESP 17; TEMP 97.8; O2SAT 99
[2022-12-23 06:24] LABS: Basophils # (auto) 0 10 ^3/uL (0-0.2); Eosinophils # (auto) 0.2 10 ^3/uL (0-0.8); Eosinophils % (auto) 6.6 % (0.0-7.0); Hematocrit 45.2 % (41.0-53.0); Hemoglobin 15.1 g/dL (13.5-17.5); Lymphocytes # (auto) 1.3 10 ^3/uL (0.4-5.4); Lymphocytes % (auto) 47.6 % (10.0-50.0); Mean Corpuscular Hemoglobin 30.1 pg (28.0-32.0); Mean Corpuscular Hgb Conc. 33.3 g/dL (32.0-36.0); Mean Corpuscular Volume 90.4 fL (80.0-100.0); Monocytes # (auto) 0.4 10 ^3/uL (0-1.3); Neutrophils # (auto) 0.8 10 ^3/uL (1.6-8.6); Neutrophils % (auto) 29.8 % (37.0-80.0); Nucleated Red Blood Cells % 0.1 %; Red Cell Distribution Width 17.5 % (11.8-14.3); White Blood Cell 2.7 10^3/uL (4.4-10.8)
[2022-12-23 06:26] LABS: Potassium 3.7 mmol/L (3.5-5.1)
[2022-12-23] MEDS: SODIUM CHLORIDE 0.9% 1,000 ML IV SCH ×2 (06:28→14:30)
[2022-12-23 06:30] LABS: BUN/Creatinine Ratio 1.7 (10.0-20.0); Calcium 8.7 mg/dL (8.5-10.1)
[2022-12-23 09:00] VITALS: BP 118/88; PULSE 68; RESP 19; TEMP 98.1; O2SAT 100
[2022-12-23] MEDS: PANTOPRAZOLE 40 MG/10 ML VIAL INJ IV SCH (09:01)
[2022-12-23] MEDS: FOLIC ACID 1 MG, MULTIPLE VITAMIN 10 ML, MAGNESIUM SULF SDV 50% 8 MEQ, THIAMINE INJ 100... INJ SCH ×5 (12:00)
[2022-12-23 13:00] VITALS: BP 121/79; PULSE 62; RESP 19; TEMP 98.1; O2SAT 98
== END 2022-12-23 15:23 | disposition home or self-care (01) | DRG 282 ==
LOC: ER 21:27 → OVERFLOW 12-19 10:24 → WEST WING 12-19 17:50
PROVIDERS: ADMIT Internal Medicine; ATTEND Student in an Organized Health Care Education/Training Program
DX: K85.90 Acute pancreatitis without necrosis or infection, unspecified (principal); R65.11 Systemic inflammatory response syndrome (SIRS) of non-infectious origin with acute organ dysfunction; E87.1 Hypo-osmolality and hyponatremia; E86.0 Dehydration; F17.200 Nicotine dependence, unspecified, uncomplicated; J45.909 Unspecified asthma, uncomplicated; R03.0 Elevated blood-pressure reading, without diagnosis of hypertension; R74.8 Abnormal levels of other serum enzymes; I10 Essential (primary) hypertension; F10.10 Alcohol abuse, uncomplicated; Z87.19 Personal history of other diseases of the digestive system; Z71.6 Tobacco abuse counseling; Z71.41 Alcohol abuse counseling and surveillance of alcoholic
CPT/HCPCS: 36415; 80048; 80053; 80061; 80320; 81001; 83690; 85025; 96372; 96374; 96375; 96376; C9113; G0378; J2405

== ENCOUNTER 2023-02-27 02:43 | Inpatient (IN) | payer MEDICAID ==
[~2023-02-27] VITALS: Ht 170.2 cm; Wt 100.3 kg
[2023-02-27 03:51] LABS: Basophils # (auto) 0 10 ^3/uL (0-0.2); Basophils % (auto) 0.2 % (0.0-2.0); Eosinophils # (auto) 0 10 ^3/uL (0-0.8); Eosinophils % (auto) 0.6 % (0.0-7.0); Hematocrit 48.7 % (41.0-53.0); Hemoglobin 16.3 g/dL (13.5-17.5); Lymphocytes % (auto) 19.8 % (10.0-50.0); Mean Corpuscular Hemoglobin 29.5 pg (28.0-32.0); Mean Corpuscular Hgb Conc. 33.4 g/dL (32.0-36.0); Mean Corpuscular Volume 88.3 fL (80.0-100.0); Monocytes # (auto) 0.5 10 ^3/uL (0-1.3); Monocytes % (auto) 9.9 % (0.0-12.0); Neutrophils # (auto) 3.6 10 ^3/uL (1.6-8.6); Neutrophils % (auto) 69.5 % (37.0-80.0); Nucleated Red Blood Cells % 0.4 %; Red Blood Cells 5.52 10^6/uL (4.5-5.90); Red Cell Distribution Width 14.9 % (11.8-14.3); White Blood Cell 5.2 10^3/uL (4.4-10.8)
[2023-02-27 04:08] LABS: Alanine Aminotransferase 26 U/L (7-40); Albumin 4.3 g/dL (3.2-4.8); Alkaline Phosphatase 233 U/L (46-116); Anion Gap 13 (5-15); Aspartate Aminotransferase 36 U/L (13-40); Bilirubin, Total 1.3 mg/dL (0.2-1.0); Calcium 9.1 mg/dL (8.7-10.4); Carbon Dioxide 24 mmol/L (20-30); Chloride 99 mmol/L (98-107); Lipase 547 U/L (12-53); Potassium 3.6 mmol/L (3.5-5.1); Sodium 136 mmol/L (136-145); Total Protein 7.4 g/dL (5.7-8.2)
[2023-02-27 04:14] LABS: BUN/Creatinine Ratio 6.7 (10.0-20.0); Blood Urea Nitrogen < 5 mg/dL (9-23)
[2023-02-27 04:30] LABS: Glucose 104 mg/dL (74-106)
[2023-02-27] MEDS ORDERED: SODIUM CHLORIDE 0.9% 2,000 ML IV ONE (05:00)
[2023-02-27] MEDS ORDERED: HYDROmorphone HCL 2 MG/ML VL/or syr IV ONE (05:00)
[2023-02-27] MEDS ORDERED: ONDANSETRON HCL 4 MG/2 ML VIAL IV ONE (05:00)
[2023-02-27] MEDS ORDERED: PANTOPRAZOLE 40 MG/10 ML VIAL INJ IV ONE (05:45)
[2023-02-27] MEDS ORDERED: NITROGLYCERIN 0.4 MG SL TAB SL PRN (05:45)
[2023-02-27] MEDS ORDERED: MORPHINE SULFATE INJ 2 MG/ml SYRG IV PRN (05:45)
[2023-02-27 07:08] VITALS: PULSE 117; RESP 22; O2SAT 98
[2023-02-27] MEDS: ENOXAPARIN SOD 40 MG/0.4 ML SYRINGE SC SCH (11:00)
[2023-02-27] MEDS: ONDANSETRON HCL 4 MG/2 ML VIAL IV PRN (11:02)
[2023-02-27 11:57] LABS: Basophils # (auto) 0 10 ^3/uL (0-0.2); Basophils % (auto) 0.3 % (0.0-2.0); Eosinophils # (auto) 0.1 10 ^3/uL (0-0.8); Eosinophils % (auto) 1.6 % (0.0-7.0); Hematocrit 47.2 % (41.0-53.0); Hemoglobin 15.5 g/dL (13.5-17.5); Lymphocytes # (auto) 0.7 10 ^3/uL (0.4-5.4); Lymphocytes % (auto) 20.2 % (10.0-50.0); Mean Corpuscular Hemoglobin 29.1 pg (28.0-32.0); Mean Corpuscular Hgb Conc. 32.8 g/dL (32.0-36.0); Mean Corpuscular Volume 88.6 fL (80.0-100.0); Monocytes # (auto) 0.4 10 ^3/uL (0-1.3); Monocytes % (auto) 10.9 % (0.0-12.0); Neutrophils # (auto) 2.3 10 ^3/uL (1.6-8.6); Nucleated Red Blood Cells % 0.2 %; Red Blood Cells 5.32 10^6/uL (4.5-5.90); Red Cell Distribution Width 14.7 % (11.8-14.3); White Blood Cell 3.4 10^3/uL (4.4-10.8)
[2023-02-27 12:32] LABS: Alanine Aminotransferase 26 U/L (7-40); Alkaline Phosphatase 186 U/L (46-116); Anion Gap 11 (5-15); Aspartate Aminotransferase 27 U/L (13-40); Calcium 8.1 mg/dL (8.5-10.1); Carbon Dioxide 26 mmol/L (20-30); Chloride 102 mmol/L (98-107); Glucose 108 mg/dL (74-106); Potassium 3.7 mmol/L (3.5-5.1); Sodium 139 mmol/L (136-145)
[2023-02-27 12:33] LABS: Albumin 3.8 g/dL (3.2-4.8)
[2023-02-27 12:34] LABS: Bilirubin, Total 1.1 mg/dL (0.2-1.0); Total Protein 6.6 g/dL (5.7-8.2)
[2023-02-27 12:36] LABS: BUN/Creatinine Ratio 6.8 (10.0-20.0); Blood Urea Nitrogen < 5 mg/dL (9-23)
[2023-02-27 13:27] LABS: Lipase 463 U/L (12-53)
[2023-02-27] MEDS: HYDROcodone-ACET 5/325MG TAB PO PRN (16:14)
[2023-02-27 21:50] LABS: Urine Bacteria NONE SEEN /hpf (None Seen); Urine Blood TRACE /uL (Negative); Urine Clarity Clear (Clear); Urine Color Yellow (Yellow); Urine Mucus FEW (None Seen); Urine Protein, UAD 1+ (Negative); Urine Specific Gravity 1.031 (1.001-1.035); Urine WBC <1 /hpf (0 - 3); Urine pH 6.5 (5.0-8.0)
[2023-02-27 21:57] LABS: Amphetamine Screen, Urine Neg (NEGATIVE); Barbiturate Scree,Urine Neg (NEGATIVE); Benzodiazephine Screen, Urine Neg (NEGATIVE); Cannabinoid Screen, Urine Neg (NEGATIVE); Cocaine Screen, Urine Neg (NEGATIVE); Opiate Scree,Urine Pos (NEGATIVE); Phencyclidine Screen, Urine Neg (NEGATIVE)
[2023-02-27] MEDS: HYDROmorphone HCL 2 MG/ML VL/or syr IV PRN (23:09)
[2023-02-28 00:24] VITALS: PULSE 72; RESP 16; O2SAT 98
[2023-02-28] MEDS: HYDROcodone-ACET 5/325MG TAB PO PRN ×3 (01:09→23:50)
[2023-02-28 05:08] LABS: Basophils # (auto) 0 10 ^3/uL (0-0.2); Basophils % (auto) 0.3 % (0.0-2.0); Eosinophils # (auto) 0.2 10 ^3/uL (0-0.8); Eosinophils % (auto) 5.6 % (0.0-7.0); Hematocrit 47.7 % (41.0-53.0); Hemoglobin 15.8 g/dL (13.5-17.5); Lymphocytes # (auto) 0.7 10 ^3/uL (0.4-5.4); Lymphocytes % (auto) 22.4 % (10.0-50.0); Mean Corpuscular Hemoglobin 29.5 pg (28.0-32.0); Mean Corpuscular Hgb Conc. 33.2 g/dL (32.0-36.0); Monocytes # (auto) 0.4 10 ^3/uL (0-1.3); Monocytes % (auto) 11.9 % (0.0-12.0); Neutrophils # (auto) 1.9 10 ^3/uL (1.6-8.6); Neutrophils % (auto) 59.8 % (37.0-80.0); Nucleated Red Blood Cells % 0.2 %; Red Blood Cells 5.36 10^6/uL (4.5-5.90); Red Cell Distribution Width 14.7 % (11.8-14.3); White Blood Cell 3.2 10^3/uL (4.4-10.8)
[2023-02-28 05:18] LABS: Alanine Aminotransferase 21 U/L (7-40); Albumin 3.9 g/dL (3.2-4.8); Alkaline Phosphatase 191 U/L (46-116); Anion Gap 7 (5-15); Aspartate Aminotransferase 22 U/L (13-40); Calcium 8.6 mg/dL (8.7-10.4); Carbon Dioxide 28 mmol/L (20-30); Chloride 103 mmol/L (98-107); Glucose 81 mg/dL (74-106); Potassium 3.8 mmol/L (3.5-5.1); Sodium 138 mmol/L (136-145); Total Protein 6.7 g/dL (5.7-8.2)
[2023-02-28] MEDS: HYDROmorphone HCL 2 MG/ML VL/or syr IV PRN ×5 (05:26→21:50)
[2023-02-28 05:29] LABS: BUN/Creatinine Ratio 6.5 (10.0-20.0); Blood Urea Nitrogen < 5 mg/dL (9-23)
[2023-02-28 08:44] VITALS: PULSE 89; RESP 17; O2SAT 97
[2023-02-28] MEDS: ENOXAPARIN SOD 40 MG/0.4 ML SYRINGE SC SCH (09:41)
[2023-02-28] MEDS: SODIUM CHLORIDE 0.9% 1,000 ML IV SCH ×2 (11:30→21:52)
[2023-02-28 17:00] VITALS: BP 147/108; PULSE 80; RESP 20; TEMP 98.3; O2SAT 99
[2023-02-28] MEDS: ONDANSETRON HCL 4 MG/2 ML VIAL IV PRN (18:14)
[2023-02-28 18:58] VITALS: BP 145/92; PULSE 80; PULSE 94; RESP 17; RESP 20; TEMP 97.6; O2SAT 99
[2023-02-28 20:00] VITALS: PULSE 98; RESP 18; O2SAT 96
[2023-02-28] MEDS: hydrALAZINE HCL 20 MG/ML VL IV PRN (21:51)
[2023-02-28 22:00] VITALS: BP 168/110; PULSE 74; RESP 18; TEMP 98.7; O2SAT 97
[2023-02-28] MEDS: TEMAZEPAM 15 MG CAP PO PRN (23:50)
[2023-03-01] MEDS: HYDROmorphone HCL 2 MG/ML VL/or syr IV PRN ×5 (02:56→22:13)
[2023-03-01] MEDS: SODIUM CHLORIDE 0.9% 1,000 ML IV SCH ×3 (03:30→18:32)
[2023-03-01 04:36] VITALS: BP 157/100; PULSE 59; RESP 18; TEMP 98.3; O2SAT 99
[2023-03-01] MEDS: ENOXAPARIN SOD 40 MG/0.4 ML SYRINGE SC SCH (08:42)
[2023-03-01 09:00] VITALS: BP 151/100; PULSE 94; RESP 12; TEMP 98.3; O2SAT 98
[2023-03-01] MEDS: HYDROcodone-ACET 5/325MG TAB PO PRN ×2 (11:37→19:38)
[2023-03-01 13:00] VITALS: BP 148/104; PULSE 82; RESP 14; TEMP 98.2; O2SAT 99
[2023-03-01] MEDS: hydrALAZINE HCL 20 MG/ML VL IV PRN (15:51)
[2023-03-01 17:00] VITALS: BP 164/115; PULSE 67; RESP 19; TEMP 98.5; O2SAT 99
[2023-03-01] MEDS ORDERED: HCTZ 25 MG TAB PO ONE (17:15)
[2023-03-01 22:00] VITALS: BP 157/94; PULSE 76; RESP 18; TEMP 98.8; O2SAT 100
[2023-03-02] MEDS: HYDROmorphone HCL 2 MG/ML VL/or syr IV PRN ×5 (02:23→22:05)
[2023-03-02] MEDS: SODIUM CHLORIDE 0.9% 1,000 ML IV SCH ×3 (03:30→19:30)
[2023-03-02] MEDS: hydrALAZINE HCL 20 MG/ML VL IV PRN (04:11)
[2023-03-02] MEDS: HYDROcodone-ACET 5/325MG TAB PO PRN ×2 (04:12→13:13)
[2023-03-02 05:00] VITALS: BP 147/106; PULSE 93; RESP 18; TEMP 98.4; O2SAT 100
[2023-03-02 05:50] LABS: Basophils # (auto) 0 10 ^3/uL (0-0.2); Basophils % (auto) 0.6 % (0.0-2.0); Eosinophils # (auto) 0.1 10 ^3/uL (0-0.8); Eosinophils % (auto) 3.4 % (0.0-7.0); Hematocrit 51.2 % (41.0-53.0); Hemoglobin 17.3 g/dL (13.5-17.5); Lymphocytes % (auto) 29.6 % (10.0-50.0); Mean Corpuscular Hemoglobin 29.5 pg (28.0-32.0); Mean Corpuscular Hgb Conc. 33.8 g/dL (32.0-36.0); Mean Corpuscular Volume 87.5 fL (80.0-100.0); Monocytes # (auto) 0.4 10 ^3/uL (0-1.3); Monocytes % (auto) 11.9 % (0.0-12.0); Neutrophils # (auto) 1.8 10 ^3/uL (1.6-8.6); Neutrophils % (auto) 54.5 % (37.0-80.0); Nucleated Red Blood Cells % 0.1 %; Red Blood Cells 5.86 10^6/uL (4.5-5.90); Red Cell Distribution Width 14.7 % (11.8-14.3); White Blood Cell 3.2 10^3/uL (4.4-10.8)
[2023-03-02 06:02] LABS: Alanine Aminotransferase 26 U/L (7-40); Albumin 4.6 g/dL (3.2-4.8); Alkaline Phosphatase 197 U/L (46-116); Anion Gap 11 (5-15); Aspartate Aminotransferase 22 U/L (13-40); Calcium 9.4 mg/dL (8.7-10.4); Carbon Dioxide 19 mmol/L (20-30); Chloride 100 mmol/L (98-107); Glucose 105 mg/dL (74-106); Lipase 216 U/L (12-53); Potassium 3.6 mmol/L (3.5-5.1)
[2023-03-02 06:03] LABS: Bilirubin, Total 0.9 mg/dL (0.2-1.0); Total Protein 7.9 g/dL (5.7-8.2)
[2023-03-02 06:16] LABS: BUN/Creatinine Ratio 6.7 (10.0-20.0); Blood Urea Nitrogen < 5 mg/dL (9-23); Sodium 130 mmol/L (136-145)
[2023-03-02 09:00] VITALS: BP 133/101; PULSE 78; RESP 20; TEMP 98.5; O2SAT 98
[2023-03-02] MEDS: ENOXAPARIN SOD 40 MG/0.4 ML SYRINGE SC SCH (09:11)
[2023-03-02] MEDS: HCTZ 25 MG TAB PO SCH (09:20)
[2023-03-02] MEDS: LOSARTAN POTASSIUM 25 MG TAB PO SCH (09:20)
[2023-03-02] MEDS ORDERED: amLODIPine BESYLATE 5 MG TAB PO ONE (12:30)
[2023-03-02 13:00] VITALS: BP 139/105; PULSE 99; RESP 20; TEMP 98.3; O2SAT 98
[2023-03-02 17:00] VITALS: BP 137/97; PULSE 102; RESP 20; TEMP 98.3; O2SAT 99
[2023-03-02 22:00] VITALS: BP 136/90; PULSE 97; RESP 18; TEMP 98.1; O2SAT 100
[2023-03-03] MEDS: TEMAZEPAM 15 MG CAP PO PRN (01:08)
[2023-03-03] MEDS: HYDROmorphone HCL 2 MG/ML VL/or syr IV PRN (02:44)
[2023-03-03] MEDS: SODIUM CHLORIDE 0.9% 1,000 ML IV SCH ×3 (03:30→22:08)
[2023-03-03 05:00] VITALS: BP 133/102; PULSE 97; RESP 16; TEMP 98.3; O2SAT 100
[2023-03-03 08:00] VITALS: BP 135/96; PULSE 99; RESP 21; TEMP 98.4; O2SAT 100
[2023-03-03] MEDS: LOSARTAN POTASSIUM 25 MG TAB PO SCH (09:15)
[2023-03-03] MEDS: amLODIPine BESYLATE 5 MG TAB PO SCH (09:16)
[2023-03-03] MEDS: HCTZ 25 MG TAB PO SCH (09:16)
[2023-03-03] MEDS: HYDROcodone-ACET 5/325MG TAB PO PRN (09:16)
[2023-03-03] MEDS: ENOXAPARIN SOD 40 MG/0.4 ML SYRINGE SC SCH (09:37)
[2023-03-03] MEDS ORDERED: PANC24002 PO (11:31)
[2023-03-03] MEDS ORDERED: LOS25T PO (11:31)
[2023-03-03] MEDS ORDERED: AML5T PO (11:31)
[2023-03-03 12:00] VITALS: BP 129/94; PULSE 96; RESP 21; TEMP 98.8; O2SAT 97
[2023-03-03] MEDS: PANCREATIC ENZYMES 4200 UNIT CAP PO SCH ×2 (12:27→18:26)
[2023-03-03 17:00] VITALS: BP 112/72; PULSE 94; RESP 20; TEMP 98.8; O2SAT 96
[2023-03-04 05:00] VITALS: BP 109/68; PULSE 66; RESP 19; TEMP 98.5; O2SAT 96
[2023-03-04] MEDS: SODIUM CHLORIDE 0.9% 1,000 ML IV SCH ×2 (05:35→11:30)
[2023-03-04] MEDS: PANCREATIC ENZYMES 4200 UNIT CAP PO SCH ×2 (07:59→13:24)
[2023-03-04 08:00] VITALS: PULSE 87; RESP 18; O2SAT 98
[2023-03-04 09:00] VITALS: BP 114/76; PULSE 87; RESP 18; TEMP 98.4; O2SAT 98
[2023-03-04] MEDS: HCTZ 25 MG TAB PO SCH (09:43)
[2023-03-04] MEDS: amLODIPine BESYLATE 5 MG TAB PO SCH (09:43)
[2023-03-04] MEDS: LOSARTAN POTASSIUM 25 MG TAB PO SCH (09:44)
[2023-03-04] MEDS: ENOXAPARIN SOD 40 MG/0.4 ML SYRINGE SC SCH (09:44)
[2023-03-04 13:00] VITALS: BP 117/78; PULSE 84; RESP 18; TEMP 98; O2SAT 96
[2023-03-04 15:19] VITALS: BP 117/78; PULSE 84; RESP 18; TEMP 98; O2SAT 96
== END 2023-03-04 16:30 | disposition home or self-care (01) | DRG 282 ==
LOC: ER 02:43 → EDBD 02:43 → OVERFLOW 05:42 → WEST WING 02-28 15:52
PROVIDERS: ADMIT Nurse Practitioner; ATTEND Nurse Practitioner
DX: K85.20 Alcohol induced acute pancreatitis without necrosis or infection (principal); F10.10 Alcohol abuse, uncomplicated; I10 Essential (primary) hypertension; R74.8 Abnormal levels of other serum enzymes; J45.909 Unspecified asthma, uncomplicated
CPT/HCPCS: 36415; 80053; 80307; 80320; 81001; 83690; 85025; 97163; C9113; G0378; J2405